=== PATIENT | female | born 1975 | race Caucasian/White ===

== ENCOUNTER 2017-07-19 09:49 | Day surgery (SDC) | payer BC, MEDICAID ==
[2017-07-18 14:22] VITALS: BMI 19.4
[2017-07-19] VITALS (12 sets, daily range): BP systolic 102–121; BP diastolic 64–77; PULSE 74–95; RESP 15–24; Ht 154.9 cm; Wt 46.0 kg
[~2017-07-19] VITALS: Ht 154.9 cm; Wt 46.0 kg
[~2017-07-19 09:49] MED LIST: ACET-915
[2017-07-19] MEDS ORDERED: SOD CHLORIDE 0.9% 1,000 ML IV SCH (10:30)
[2017-07-19 11:16] LABS: BASOPHILS % 0.4 % (0.0-2.0); EOSINOPHILS # 0.1 10^3/ul (0.0-0.5); HEMATOCRIT 33.5 % (37.0-47.0); HEMOGLOBIN 11.1 g/dl (12.0-16.0); LYMPHOCYTES % 38.2 % (15.0-51.0); MEAN CORPUSCULAR HEMOGLOBIN 31.3 pg (29.0-33.0); MEAN CORPUSCULAR HGB CONC 33.1 g/dl (32.0-37.0); MEAN CORPUSCULAR VOLUME 94.4 fl (82.0-101.0); MEAN PLATELET VOLUME 11.1 fl (7.4-10.4); MONOCYTE # 0.3 10^3/ul (0.3-0.9); MONOCYTES % 5.8 % (0.0-11.0); NEUTROPHILS % 54.6 % (39.0-77.0); PLATELET COUNT 233 10^3/UL (140-415); RED BLOOD COUNT 3.55 10^6/ul (4.20-5.40); RED CELL DISTRIBUTION WIDTH 12.5 % (11.5-14.5); WHITE BLOOD COUNT 5.2 10^3/ul (4.8-10.8)
[2017-07-19 11:35] LABS: INR 0.95; PARTIAL THROMBOPLASTIN TIME 31.1 Sec (25.0-35.0); PROTIME 12.7 Sec (12.2-14.2)
[2017-07-19 11:46] LABS: ALBUMIN 4.2 g/dl (3.3-4.9); ALBUMIN/GLOBULIN RATIO 1.55; BILIRUBIN,INDIRECT 0.3 mg/dl (0-1.1); BILIRUBIN,TOTAL 0.3 mg/dl (0.2-1.3); TOTAL PROTEIN 6.9 g/dl (6.1-8.1)
[2017-07-19 11:52] LABS: CREATININE 0.62 mg/dl (0.44-1.00); POTASSIUM 4.2 mmol/L (3.5-5.1)
[2017-07-19] MEDS ORDERED: METOCLOPRAMIDE 10 MG INJ ONE (13:49)
[2017-07-19] MEDS ORDERED: ONDANSETRON 4 MG INJ ONE (13:49)
[2017-07-19] MEDS ORDERED: PROPOFOL 20 ML ONE (13:49)
[2017-07-19] MEDS ORDERED: CEFAZOLIN 1 GM INJ ONE (13:49)
[2017-07-19] MEDS ORDERED: LIDOCAINE 2% (SDV) 5 ML INJ ONE (13:49)
[2017-07-19] MEDS ORDERED: MEPERIDINE 100 MG INJ ONE (13:53)
[2017-07-19] MEDS ORDERED: hydrALAzine 20 MG INJ IV PRN (14:00)
[2017-07-19] MEDS ORDERED: OXYCODONE/ACETAMINOPHEN (5/325) TAB PO PRN ×2 (14:00)
[2017-07-19] MEDS ORDERED: LABETALOL HCL 20MG INJ IV PRN (14:00)
[2017-07-19] MEDS ORDERED: MIDAZOLAM 1 MG/ML 2 ML INJ IV PRN (14:00)
[2017-07-19] MEDS ORDERED: ONDANSETRON 4 MG INJ IV PRN (14:00)
[2017-07-19] MEDS ORDERED: HYDROmorphONE (0.2 MG/ML) 10ML SYG IV PRN ×3 (14:00)
[2017-07-19] MEDS ORDERED: METOCLOPRAMIDE 10 MG INJ IV PRN (14:00)
[2017-07-19] MEDS ORDERED: MEPERIDINE 25 MG INJ IV PRN (14:00)
[2017-07-19] MEDS ORDERED: FENTAnyl 50 MCG/ML VIAL IV PRN ×3 (14:00)
[2017-07-19] MEDS ORDERED: EPHEDrine SULFATE 50 MG/5 ML SYG IV PRN (14:00)
[2017-07-19] MEDS ORDERED: DIPHENHYDRAMINE 50 MG INJ IV PRN (14:00)
--- NOTE | 2017-07-19 15:01 | OPR ---
Date/Time of Note Date/Time of Note DATE: 07/19/17 TIME: 14:54 Operative Report Preoperative Diagnosis Multiple right breast masses Postoperative Diagnosis Same Operation/Procedure Performed Excision of right breast masses 3 Co-Surgeon: MALCOLM PERRY MD nurseryman assistant: WALI ADEN MD Anesthesia Type: general Estimated Blood Loss: 10 - 50 ml's Transfusion Required: no Specimens Right breast masses 3 Grafts/Implants: none Complications: no MALCOLM PERRY MD Jul 19, 2017 15:01
[2017-07-19] MEDS ORDERED: HYDROCODONE/APAP (7.5/325) TAB PO PRN (15:30)
--- NOTE | 2017-07-19 17:24 | OPR ---
DATE OF OPERATION: 07/19/2017 PREOPERATIVE DIAGNOSIS: Multiple phyllodes tumors, right breast. POSTOPERATIVE DIAGNOSIS: Multiple phyllodes tumors, right breast. OPERATIVE PROCEDURE: Excision of phyllodes tumors right breast times 3. ANESTHESIA: General. ANESTHESIOLOGIST: Eleazar Springer MD SURGEON: Robert Hair MD [employer]: . INDICATIONS FOR PROCEDURE: The patient is a 41-year-old female, who presented with enlarging right breast masses, at least 2. Core biopsy revealed phyllodes tumor. The patient was counseled as to the risks versus benefits of surgical excision. She consented and was scheduled for surgery. OPERATION PERFORMED: Patient was brought to the operating theater and placed under general anesthesia. The right breast was prepped and draped in the usual sterile fashion. The largest mass was in the subareolar location. A periareolar incision was made and the subcutaneous tissue was dissected with cautery. The skin edges were then elevated with skin hooks and wide circumferential dissection of the mass took place. It was removed and sent for permanent pathologic analysis. Palpation more laterally revealed a 2nd mass in the upper outer quadrant of the breast. Decision was made to resect this mass also through the same incision. Dissection continued laterally and the mass was identified and meticulously dissected using cautery. It was removed and sent for permanent pathologic analysis. A final mass was very lateral, but reachable again through the same incision. It was grasped with an Allis, elevated, and the mass was then transected from the surrounding breast parenchyma using cautery. It was removed and also sent for permanent pathologic analysis. The wound was irrigated, residual bleeding was controlled with cautery, and the skin incision was then reapproximated with a deep dermal layer of 4-0 Vicryl sutures in interrupted fashion, followed by final skin approximation with 5-0 PDS sutures in subcuticular fashion, and Dermabond was then applied. The patient tolerated the procedure well. ESTIMATED BLOOD LOSS: Was 70 mL. COMPLICATIONS: There were no complications and the patient was transported in stable condition to the recovery room where a circumferential compression dressing was applied. Dictated By: Robert Hair MD /ravin/johann /Document#: [id number]
== END 2017-07-19 16:55 | disposition home or self-care (01) ==
LOC: SDS 09:49
PROVIDERS: ATTEND Surgery Surgical Oncology
DX: D24.1 Benign neoplasm of right breast (principal); N60.11 Diffuse cystic mastopathy of right breast; N60.21 Fibroadenosis of right breast; N61.0 Mastitis without abscess; N60.01 Solitary cyst of right breast
CPT/HCPCS: 19120; 80053; 84703; 85025; 85610; 85730; 88307; J0690; J1170; J2175; J2405; J2765; Z7512; Z7610